=== PATIENT | female | born 1980 | race Caucasian/White ===

== ENCOUNTER 2016-07-20 06:20 | Inpatient (IN) | payer OTHER ==
[2016-07-20] MEDS ORDERED: ELECTROLYTE-148 SOLN 1,000 ML IV ONE (08:15)
[2016-07-20] MEDS ORDERED: CEFAZOLIN (PRE-DOCKED) 50 ML IVPB ONE ×2 (08:20→19:41)
--- NOTE | 2016-07-20 08:28 | HP ---
Past Medical History - Primary Care Physician PCP:: Ilya Olmos - Admission Chief Complaint: 36 yo P2 with h/o prior MYOMECTOMY and section x 2, admitted for repeat section and STERILIZATION. History of Present Illness: Prior h/o uterine surgery: 1. Myomectomy 2011 2. section x 2 History Source: Patient, Medical Record Limitations to Obtaining History: No Limitations - Past Medical History DIAMOND SETTER: No: Alzheimer's, CVA, Dementia, Migraine, Multiple Sclerosis, Peripheral Neuropathy, Parkinson's, Seizure, Syncope, TIA, Vertigo, Other Cardiovascular: No: AFIB, Aneurysm, Aortic Insufficiency, Aortic Stenosis, CAD, CHF, Deep Vein Thrombosis, HTN, Hyperlipdemia, CA, Mitral Insufficiency, Mitral Stenosis, Murmur, Pulmonary Hypertension, Other Pulmonary: No: Asthma, Bronchitis, Cancer, COPD, O2 Dependent, Pneumonia, Previously Intubated, Pulmonary Embolus, Pulmonary Fibrosis, Sleep Apnea, Other Gastrointestinal: No: Ascites, Cancer, Constipation, Crohn's Disease, Diverticulitis, Diverticulosis, Esophageal Varices, Gastritis, GERD, GI Bleed, Hemorrhoids, Hiatal Hernia, Inflamatory Bowel Disease, Irritable Bowel Disease, Pancreatitis, Peptic Ulcer Disease, Ulcerative Colitis, Other Hepatobiliary: No: Cirrhosis, Cholelithiasis, Cholecystitis, Choledocholithiasis , Hepatitis A, Hepatitis B, Hepatitis C, Other Renal/: No: Renal Failure, Renal Inusuff, BPH, Cancer, Hematuria, Hemodialysis , Neurogenic Bladder, Renal Calculi, UTI, Other Reproductive: Yes: Other (Infertility) ...Para: 2 ( x 2) ...Term: 2 Heme/Onc: Yes: Anemia Infectious Disease: No: AIDS, C-Diff, Herpes Zoster, HIV, MRSA, STD's, Tuberculosis, VREF, Other Psych: No: Addictions, Anxiety, Bipolar, Depression, Panic, Psychosis, Schizophrenia, Other Musculoskeletal: No: Bursitis, Chronic low back pain, Hemiparesis, Hemiplegia, Osteoarthritis, Paraplegia, Other Rheumatology: No: Fibromyalgia, Gout, Lupus, Rheumatoid Arthritis, Sarcoidosis, Vasculitis, Other ENT: No: Allergic Rhinitis, Sinusitis, Other Endocrine: No: Waleska's Disease, Pardeep's Disease, Diabetes Insipidus, Diabetes Mellitus, Hyperparathyroidism, Hyperthyroidism, Hypothyroidism, Osteopenia, SIADH, Other Dermatology: No: Basal Cell, Cellulitis, Eczema, Melanoma, Psoriasis, Squamous Cell, Other - Past Surgical History Past Surgical History: Yes: Hx Myomectomy: Yes Hx Transabdominal Cerclage: No - Smoking History Smoking history: Never smoked Have you smoked in the past 12 months: No - Alcohol/Substance Use Hx Alcohol Use: No History of Substance Use: reports: None - Social History Usual Living Arrangement: Yes: With Spouse, With Child ADL: Independent Occupation: [employer] History of Recent Travel: No Home Medications - Allergies Allergies/Adverse Reactions: Allergies Allergy/AdvReac Type Severity Reaction Status Date / Time No Known Allergies Allergy Verified 07/20/16 07:50 - Home Medications Home Medications: Ambulatory Orders Ferrous Sulfate [Feosol] 325 mg PO BID #0 ud 04/16/14 Vitamins (Sjr) - 1 tab PO DAILY #0 tablet 04/16/14 Family Disease History - Family Disease History Family History: Unremarkable Review of Systems - Review of Systems Constitutional: reports: No Symptoms Eyes: reports: No Symptoms HENT: reports: No Symptoms Neck: reports: No Symptoms Cardiovascular: reports: No Symptoms Respiratory: reports: No Symptoms Gastrointestinal: reports: No Symptoms Genitourinary: reports: No Symptoms Breasts: reports: No Symptoms Reported Musculoskeletal: reports: No Symptoms Integumentary: reports: No Symptoms Neurological: reports: No Symptoms Endocrine: reports: No Symptoms Hematology/Lymphatic: reports: No Symptoms Psychiatric: reports: No Symptoms Pain Intensity: 0 Physical Exam - Maternity Constitutional: Yes: Well Nourished, No Distress, Calm Eyes: Yes: WNL, Conjunctiva Clear HENT: Yes: WNL, Atraumatic, Normocephalic Neck: Yes: WNL, Supple, Trachea Midline Cardiovascular: Yes: WNL, Regular Rate and Rhythm Lungs: Clear to auscultation, Normal air movement - Abdominal Exam/OB Fundal Height: 39 Number of Fetuses: Single Presentation: Vertex Contractions: No Heart Rate (range): 135 Heart Rate Location: Midline Category: I Accelerations: Non-Uniform Decelerations: None - Vaginal Exam/OB Vaginal Bleediing: No Speculum Exam: No Dilatation (cm): 0 Amniotic Membrane Status: Intact Station: -3 - Physical Exam Musculoskeletal: Yes: WNL Extremities: Yes: WNL Edema: Yes Edema: LLE: Trace, RLE: Trace Integumentary: Yes: WNL Deep Tendon Reflex Grade: Normal +2 ...Motor Strength: WNL Psychiatric: Yes: WNL, Alert, Oriented Hemorrhage Risk Assessment - Risk Factors Medium Risk Factors: Yes: Prior , uterine surgery,or multiple laparotomies High Risk Factors: Yes: None Risk Score: 1 Risk Level: Medium Risk Imaging - Results Ultrasound: Report Reviewed Assessment/Plan 36 yo P2 with h/o prior MYOMECTOMY and section x 2, admitted for repeat section and STERILIZATION. We discussed the risks, benefits, alternatives of section including but not limited to infection, bleeding, injury to surrounding/underlying tissues, blood transfusion, need for additional surgery to repair any complications, failed sterilization, etc. The pt verbalized her understanding and requested to proceed.
[2016-07-20] MEDS ORDERED: CITRIC ACID/SODIUM CITRATE 30 ML UNIT-DOSE CUP PO ONE (08:30)
[2016-07-20 08:40] VITALS: BMI 34.7
[2016-07-20 09:04] LABS: ALBUMIN 2.4 g/dl (3.4-5.0); ANION GAP 11 (8-16); BILIRUBIN,TOTAL 0.2 mg/dL (0.2-1.0); CALCIUM 8.5 mg/dL (8.5-10.1); CO2 23 mmol/L (21-32); COCKROFT - GAULT 281.2395; CREATININE 0.4 mg/dL (0.55-1.02); GLUCOSE,RANDOM 77 mg/dL (74-106); SGOT/AST 20 U/L (15-37); SGPT/ALT 18 U/L (12-78); TOT PROT 5.5 g/dl (6.4-8.2)
[2016-07-20 09:05] LABS: ALK PHOS 130 U/L (45-117)
[2016-07-20] MEDS ORDERED: ELECTROLYTE-148 SOLN 1,000 ML IV SCH (09:15)
[2016-07-20] MEDS ORDERED: morphine SULFATE/Preservative Free 0.5 MG/ML (1cc Syringe) SPIN ONE (12:59)
[2016-07-20] MEDS ORDERED: ONDANSETRON 4 MG/2 ML VIAL IVPB PRN (12:59)
[2016-07-20] MEDS: OXYTOCIN 20 UNITS in 0.9% NS 1,000 ML IV SCH (13:20)
[2016-07-20] MEDS ORDERED: IBUPROFEN 800 MG/8 ML IJ IVPB PRN (17:11)
--- NOTE | 2016-07-20 17:53 | OP ---
Operative Note - Note: Operative Date: 07/20/16 Pre-Operative Diagnosis: 36yo P2 with at EGA 38wks. prior myomectomy , and sectons x 2. Desired sterilization. Fibroid uterus Operation: 1. Repeat Low Transverse section. 2. Myomectomy. 3. Left salpingetomy, right tubal ligation via modified Pomery method Findings: 1. Multiple dense adhesions b/w uterus, bladder, anterior abdominal wall 2. Multiple large fibroids, including a large anterior submucosal myoma in low uterine segment at incision site 3. Scarred and adherent left Fallopian tube, thickened and adherent right Fallopian tube. Post-Operative Diagnosis: Same as Pre-op Surgeon: Ilya Olmos Transport Pilot: Clive Linton Anesthesiologist/FOOD SERVICE REPRESENTATIVE: Alexa Addison Anesthesia: Spinal Specimens Removed: 1. Placenta. 2. Fibroid. 3. Left Fallopian tube. 4. Frament of right Fallopian tube. Estimated Blood Loss (mls): 1,000 Drains & Tubes with Location: Goff Cath Drains, Volume Out (mls): 100 (clear) Blood Volume Replaced (mls): 0 Fluid Volume Replaced (mls): 1,100 Operative Report Dictated: Yes
[2016-07-20] MEDS ORDERED: METHYLERGONOVINE MALEATE 0.2 MG/1 ML AMP IM PRN (18:08)
[2016-07-20] MEDS ORDERED: BENZOCAINE 20% 57 GM BOTTLE TP PRN (18:08)
[2016-07-20] MEDS ORDERED: SENNOSIDES/DOCUSATE COMBO (SENNA PLUS) TABLET (UD) PO PRN (18:08)
[2016-07-20] MEDS ORDERED: IBUPROFEN 600 MG TABLET (FP) PO PRN (18:08)
[2016-07-20] MEDS ORDERED: oxyCODONE HCL 5 MG TABLET PO PRN (18:08)
[2016-07-20] MEDS ORDERED: BENZOCAINE 28 GM HEMORRHOIDAL OINTMENT TP PRN (18:08)
[2016-07-20] MEDS ORDERED: OXYTOCIN 20 UNITS in 0.9% NS 1,000 ML IV SCH (18:15)
[2016-07-20] MEDS: CEFAZOLIN 1 GM/D5W 50 ML IVPB SCH (19:50)
[2016-07-21] MEDS ORDERED: CEFAZOLIN (PRE-DOCKED) 50 ML IVPB ONE (02:04)
[2016-07-21] MEDS: IBUPROFEN 600 MG TABLET (FP) PO PRN ×5 (02:31→21:17)
[2016-07-21] MEDS: CEFAZOLIN 1 GM/D5W 50 ML IVPB SCH ×2 (02:31→09:04)
[2016-07-21] MEDS: ACETAMINOPHEN 325 MG TABLET (FP) PO PRN ×5 (02:31→21:16)
[2016-07-21 07:59] LABS: BASOPHIL 0.2 % (0-2.0); EOSINOPHIL 0.5 % (0-4.5); MCH 30.8 pg (25.7-33.7); MCHC 33.1 g/dl (32.0-36.0); MEAN CELL VOLUME 93.3 fl (80-96); MEAN PLT VOLUME 8.6 fl (7.5-11.1); NEUTROPHILS 75.8 % (42.8-82.8); PLATELET COUNT 166 K/MM3 (134-434); RDW 15.9 % (11.6-15.6)
--- NOTE | 2016-07-21 08:09 | OP ---
DATE OF OPERATION: 07/20/2016 PREOPERATIVE DIAGNOSIS: A 36-year-old para 2 with at estimated gestational age of 38 weeks, previous history of myomectomy, previous history of 2 sections, desired sterilization, fibroid uterus. POSTOPERATIVE DIAGNOSIS: A 36-year-old para 2 with at estimated gestational age of 38 weeks, previous history of myomectomy, previous history of 2 sections, desired sterilization, fibroid uterus. PROCEDURE: 1. Repeat low transverse section via Pfannenstiel skin incision. 2. Revision of previous 3-skin scars. 3. Uterine myomectomy. 4. Left salpingectomy. 5. Right fallopian tube ligation via modified Berkshire method. SURGEON: Ilya Olmos MD SPECIAL EDUCATION DIRECTOR: Clive Linton MD ANESTHESIOLOGIST: Alexa Addison MD ANESTHESIA: Spinal. COMPLICATIONS: None. ESTIMATED BLOOD LOSS: 1000 mL. URINE OUTPUT: 100 mL of clear urine at the end of the procedure. IV FLUIDS: 1100 mL crystalloid. PATHOLOGY: 1. Placenta. 2. Uterine fibroid. 3. Left fallopian tube. 4. Fragment of the right fallopian tube. FINDINGS: Upon initial examination, a keloid scar was noted in the area of previous 3 Pfannenstiel incisions consistent with the patient's history of a myomectomy followed by 2 sections. The patient requested revision of the scar. Upon section, severe adhesions were noted between the uterus, bladder as well as anterior abdominal wall. The uterus was noted to contain multiple fibroids including a large submucosal myoma located in the lower uterine segment at the site of uterine incision. This fibroid was not visible prior to the uterine incision. There were also multiple other fibroids throughout the uterus. The left fallopian tube was noted to be scarred and densely adherent to the uterus and left ovary. The right fallopian tube was swollen and adherent to the right ovary. A live baby girl was delivered from vertex presentation. No meconium in amniotic fluid. Apgars 10/ 10. The placenta was removed without complications and sent to Pathology. DESCRIPTION OF PROCEDURE: The patient was met preoperatively. Risks, benefits , and alternatives of surgery were discussed in detail. All questions were answered. Increased risks due to adhesive disease and previous myomectomy with sections were discussed. We reviewed the risk of infection, bleeding, scarring, injury to surrounding or underlying organs such as bladder, bowel, etc. were discussed with the patient. The patient verbalized her understanding and requested to proceed with surgery. The patient was brought to the OR with the IV running. She was placed on the surgical table in a sitting position. The spinal anesthesia was achieved without difficulty. The patient was then placed on the surgical table in a supine position with a leftward tilt. She was prepped and draped in the usual sterile fashion. A Goff catheter was inserted and left to drain to gravity. The time-out procedure was conducted as per standard protocol. The surgeons then proceeded with the section. The keloid scar from prior Pfannenstiel incisions was incised. The scar tissue was not sent to Pathology. The incision was then carried down to the level of fascia. The fascia was incised in the midline. The incision was extended bilaterally using Matthews scissors. The fascia was then dissected away from the rectus muscles superiorly and inferiorly. Dense adhesions were noted and were carefully lysed using sharp dissection. The rectus muscle was in the midline. The peritoneum was identified and entered sharply. The peritoneal incision was then extended superiorly and inferiorly. Multiple dense adhesions between the bladder, uterus, and the anterior abdominal wall were carefully lysed using sharp dissection. The bladder was then dissected away from the lower uterine segment using sharp dissection. The bladder was reflected downwards. The uterus was then incised transversely in the lower uterine segment. The lower uterine segment incision was noted to be right next to a large anterior submucosal myoma , which was not noticeable prior to uterine entry. The incision was extended laterally using bandage scissors. The baby was then delivered from vertex presentation without complications. The umbilical cord was clamped and cut. The baby was handed to the awaiting buffer operator. The placenta was then removed manually without complications. The uterus was cleared of all clot and debris. The uterus was exteriorized from the abdominal incision. At that point, it became apparent that the uterus could not be closed due to a large anterior fibroid right next to the incision. At that point, the myomectomy was performed. The anterior fibroid was carefully excised from the anterior uterine wall. Good hemostasis was noted. Once the myomectomy was completed, the uterine incision was closed using a 0 Biosyn suture in 3 layers. The uterine incision was closed with good hemostasis. The uterus was noted to be well contracted. The attention was then turned to the patient's fallopian tubes. The left fallopian tube was scarred and densely adherent to the left ovary. The left fallopian tube was dissected away from the left ovary; however, due to some persistent oozing of blood from the left fallopian tube, the decision was made to proceed with the left salpingectomy. The left fallopian tube was excised with good hemostasis and submitted to Pathology for evaluation. Attention was then turned to the right fallopian tube. The right fallopian tube was noted to be thickened and also adherent to the right ovary; however, the adhesions were thin and not as dense as the left side so the adhesions were lysed. The right fallopian tube was ligated using modified Berkshire method. Good hemostasis was noted. The uterus was then returned to the abdominal cavity. The operative field was irrigated using copious amounts of normal saline. Once the saline was aspirated, good hemostasis was confirmed. The peritoneum was then closed using a 2-0 chromic suture. The rectus muscles were approximated using several interrupted 2-0 chromic sutures. The fascia was closed using a 0 Vicryl suture with good hemostasis and approximation. The subcutaneous adipose tissues were approximated using several interrupted 0 Vicryl sutures. The skin was closed using a 4-0 Vicryl suture with a subcutaneous stitch. Good hemostasis was noted. Sponge, lap, and needle counts were correct. The patient was then transferred to the recovery room in stable condition. Shy [id number] MTDD
[2016-07-21] MEDS: OXYTOCIN 20 UNITS in 0.9% NS 1,000 ML IV SCH ×2 (09:08→17:10)
[2016-07-21] MEDS: ENOXAPARIN NA (PORCINE) 40 MG/0.4 ML DISP.SYRIN SQ SCH (09:10)
[2016-07-21] MEDS: PRENATAL VITAMINS W/ FOLIC ACID TABLET (FP) PO SCH (09:10)
[2016-07-21] MEDS ORDERED: ENOXAPARIN NA (PORCINE) 40 MG/0.4 ML DISP.SYRIN SQ SCH (10:00)
--- NOTE | 2016-07-21 10:10 | PN ---
Progress Note (short form) - Note Progress Note: pod 1 s/p repeat c/s doing well, no excess vaginal bleeding CBC, BMP 07/21/16 06:00 07/20/16 08:15 Last Vital Signs Temp Pulse Resp BP Pulse Ox 97.8 F 77 18 107/64 99 07/21/16 09:40 07/21/16 09:40 07/21/16 09:58 07/21/16 09:40 07/20/16 13:05 abdomen soft, no distension, no cva, uterus firm incision dry, clean no calf tenderness impression pod 1 doing well . afebrile plan ambulate, advance diet. pain management,
[2016-07-21] MEDS: SIMETHICONE 80 MG TAB.CHEW (FP) PO PRN ×3 (10:36→21:16)
--- NOTE | 2016-07-21 17:52 | PN ---
Progress Note (short form) - Note Progress Note: Anesthesiology Post-op POD#1 s/p C/S with bilateral tubal ligation and myomectomy under spinal anesthesia. Pt. is comfortable, walking without difficulty. She denies h/a and is able to urinate without difficulty. VSS.
[2016-07-21] MEDS ORDERED: BISACODYL 10 MG SUPP.RECT RC PRN (18:08)
[2016-07-22] MEDS: SIMETHICONE 80 MG TAB.CHEW (FP) PO PRN ×5 (04:58→22:42)
[2016-07-22] MEDS: ACETAMINOPHEN 325 MG TABLET (FP) PO PRN ×5 (04:58→22:42)
[2016-07-22] MEDS: IBUPROFEN 600 MG TABLET (FP) PO PRN ×5 (04:59→22:43)
--- NOTE | 2016-07-22 07:04 | PN ---
Post Progress Note - Subjective Subjective: 36yo P3 now POD # 2 voiding, ambulating, Passing flatus, tolerating regular diet Post Day: 2 Type of Delivery: Repeat C/S Vital Signs: Vital Signs Temperature 97.6 F 07/21/16 20:52 Pulse Rate 99 H 07/21/16 20:52 Respiratory Rate 18 07/21/16 20:52 Blood Pressure 120/67 07/21/16 20:52 O2 Sat by Pulse Oximetry (%) 99 07/20/16 13:05 Breast Exam: Yes: Soft Uterus: Yes: Fundus Firm, Non-tender Incision: Yes: Sutures intact. No: Dressing dry and intact Abdomen/GI: Yes: Abdomen soft, Passing flatus, Tolerating PO Lochia: Yes: Rubra Lochia, amount: Small Extremities: Yes: Calves non-tender Activity: Ambulating - Labs Labs: CBC WBC 11.0 K/mm3 (4.0-10.0) H D 07/21/16 06:00 RBC 3.22 M/mm3 (3.60-5.2) L 07/21/16 06:00 Hgb 9.9 GM/dL (10.7-15.3) L 07/21/16 06:00 Hct 30.0 % (32.4-45.2) L 07/21/16 06:00 MCV 93.3 fl (80-96) 07/21/16 06:00 MCHC 33.1 g/dl (32.0-36.0) 07/21/16 06:00 RDW 15.9 % (11.6-15.6) H 07/21/16 06:00 Plt Count 166 K/MM3 (134-434) 07/21/16 06:00 MPV 8.6 fl (7.5-11.1) 07/21/16 06:00 Neutrophils % 75.8 % (42.8-82.8) 07/21/16 06:00 Lymphocytes % 16.5 % (8-40) D 07/21/16 06:00 Monocytes % 7.0 % (3.8-10.2) 07/21/16 06:00 Eosinophils % 0.5 % (0-4.5) 07/21/16 06:00 Basophils % 0.2 % (0-2.0) 07/21/16 06:00 Assessment/Plan 36 yo P3 now s/p repeat c/s, myomectomy, BTL VSS, Afibrile h/h stable cont routine care
[2016-07-22] MEDS ORDERED: DIPHTH,PERTUSS(ACELL),TET 0.5 ML DISP.SYRIN IM ONE (10:00)
[2016-07-22] MEDS: PRENATAL VITAMINS W/ FOLIC ACID TABLET (FP) PO SCH (10:13)
[2016-07-22] MEDS: ENOXAPARIN NA (PORCINE) 40 MG/0.4 ML DISP.SYRIN SQ SCH (10:14)
[2016-07-22] MEDS ORDERED: CEFAZOLIN (PRE-DOCKED) 50 ML IVPB ONE (17:01)
[2016-07-23] MEDS: ACETAMINOPHEN 325 MG TABLET (FP) PO PRN ×2 (02:51→13:39)
[2016-07-23] MEDS: SIMETHICONE 80 MG TAB.CHEW (FP) PO PRN ×2 (02:51→13:41)
[2016-07-23] MEDS: IBUPROFEN 600 MG TABLET (FP) PO PRN ×2 (02:53→13:40)
--- NOTE | 2016-07-23 07:43 | PN ---
Post Progress Note - Subjective Subjective: 36 yo P3 now s/p repeat c/s and BTL no complains, no NIEVES, voids, ambulates, +BM, tolerating PO Post Day: 3 Type of Delivery: Repeat C/S Vital Signs: Vital Signs Temperature 97.7 F 07/22/16 20:30 Pulse Rate 99 H 07/22/16 20:30 Respiratory Rate 18 07/22/16 20:30 Blood Pressure 116/65 07/22/16 20:30 O2 Sat by Pulse Oximetry (%) 99 07/20/16 13:05 Breast Exam: Yes: Soft Uterus: Yes: Fundus Firm Incision: Yes: Sutures intact Abdomen/GI: Yes: Abdomen soft, Passing flatus, Tolerating PO Lochia: Yes: Rubra Lochia, amount: Small Extremities: Yes: Calves non-tender Activity: Ambulating - Labs Labs: CBC WBC 11.0 K/mm3 (4.0-10.0) H D 07/21/16 06:00 RBC 3.22 M/mm3 (3.60-5.2) L 07/21/16 06:00 Hgb 9.9 GM/dL (10.7-15.3) L 07/21/16 06:00 Hct 30.0 % (32.4-45.2) L 07/21/16 06:00 MCV 93.3 fl (80-96) 07/21/16 06:00 MCHC 33.1 g/dl (32.0-36.0) 07/21/16 06:00 RDW 15.9 % (11.6-15.6) H 07/21/16 06:00 Plt Count 166 K/MM3 (134-434) 07/21/16 06:00 MPV 8.6 fl (7.5-11.1) 07/21/16 06:00 Neutrophils % 75.8 % (42.8-82.8) 07/21/16 06:00 Lymphocytes % 16.5 % (8-40) D 07/21/16 06:00 Monocytes % 7.0 % (3.8-10.2) 07/21/16 06:00 Eosinophils % 0.5 % (0-4.5) 07/21/16 06:00 Basophils % 0.2 % (0-2.0) 07/21/16 06:00 Assessment/Plan 36 yo P3 now s/p repeat c/s, myomectomy, BTL VSS, Afibrile h/h stable d/c home today O + blood type baby girl NPV x 6 wks RTO in 1 week and 6 weeks
[2016-07-23 08:26] VITALS: BP 138/81; PULSE 82; TEMP 97.8
--- NOTE | 2016-07-23 08:36 | DS ---
Physical Exam-SAMMYING MACHINE OPERATOR Vital Signs: Vital Signs Temperature 97.8 F 07/23/16 08:25 Pulse Rate 82 07/23/16 08:25 Respiratory Rate 20 07/23/16 08:25 Blood Pressure 138/81 07/23/16 08:25 O2 Sat by Pulse Oximetry (%) 99 07/20/16 13:05 Constitutional: Yes: Well Nourished Eyes: Yes: WNL HENT: Yes: WNL Neck: Yes: WNL Cardiovascular: Yes: WNL Respiratory: Yes: WNL Gastrointestinal: Yes: WNL Renal/: Yes: WNL Pelvis: Yes: WNL External Genitalia: Yes: Normal Uterus: Yes: Normal, Firm Breast(s): Yes: WNL Edema: LUE: Trace, LLE: Trace Integumentary: Yes: WNL Wound/Incision: Yes: Clean/Dry, Sutures Intact Neurological: Yes: WNL ...Motor Strength: WNL Psychiatric: Yes: WNL Labs: CBC, BMP 07/21/16 06:00 07/20/16 08:15 Delivery - Delivery Section: Repeat (Myomectomy), Low Flap Transverse Type of Anesthesia: Spinal Episiotomy/Laceration: None EBL (cc): 1,000 Delivery, Single - Stages of Labor Date of Delivery: 07/20/16 Time of Delivery: 10:25 Time Placenta Delivered: 10:26 - Condition of Film Replacement Orderer/Technical Report Writer Present: Yes Name: Arlette Omer Weight: 6 lb 7 oz Total Hours ROM (Hrs/Mins): 0/2 - 1 Minute Total Score: 10 5 Minutes Total Score: 10 - Feeding Plan Initial Plan: Exclusive throughout hospitalization Remarks - Remarks Remarks: 36 yo P3 s/p Repeat c/s, BTL, Myomectomy good Post op recovery will follow at 1 and 6 weeks PP Discharge Summary Reason For Visit: [id number] Condition: Good - Instructions Diet, Activity, Other Instructions: Physical activity Resume your normal everyday activity as tolerated no heavy lifting or exercise until seen by your surgeon. You may walk unlimited nolberto of and climb stairs. You may resume driving the car when you feel safe and comfortable behind the wheel. No sexual activity as instructed. Wound care If you have a bandage, leave it on, and keep dry for 48-72 hours. After that time discard the outer bandage. If they are tapes on the skin under the out of bandage leave them in place. They will peel off in the next 7 to 10 days. Do Not Peel them off. You may shower the day after surgery. If there are tapes present on the skin, you may shower over them. Diet There are no dietary restrictions. Eat healthy, high-fiber foods. Drink 6 to 8 glasses of liquid each day. This will assist in keeping your bowels are regular. Pain management You may take Tylenol or acetaminophen or Ibuprofen (for example, Motrin, Advil etc.) from my pain prescription medication is ordered should be taken as prescribed for moderate to severe pain. Call MD for any of the following: Severe pain not relieved by medication Fever of 101 or higher Excessive bleeding or drainage on dressing Inability to urinate Referrals: Ilya Olmos MD [Staff Physician] - Disposition: HOME - Home Medications Comprehensive Discharge Medication List: Ambulatory Orders Ferrous Sulfate [Feosol] 325 mg PO BID #0 ud 04/16/14 Vitamins (Sjr) - 1 tab PO DAILY #0 tablet 04/16/14 Oxycodone HCl/Acetaminophen [Percocet 5-325 mg Tablet] 2 tab PO Q4H #20 tablet MDD 8 07/23/16
[2016-07-23 08:50] LABS: BASOPHIL 0.4 % (0-2.0); EOSINOPHIL 1.8 % (0-4.5); MCH 30.5 pg (25.7-33.7); MCHC 32.5 g/dl (32.0-36.0); MEAN CELL VOLUME 93.7 fl (80-96); MEAN PLT VOLUME 8.6 fl (7.5-11.1); NEUTROPHILS 67.2 % (42.8-82.8); PLATELET COUNT 179 K/MM3 (134-434); RDW 15.9 % (11.6-15.6); WHITE BLOOD COUNT 7.4 K/mm3 (4.0-10.0)
[2016-07-23] MEDS: PRENATAL VITAMINS W/ FOLIC ACID TABLET (FP) PO SCH (09:54)
[2016-07-23] MEDS: ENOXAPARIN NA (PORCINE) 40 MG/0.4 ML DISP.SYRIN SQ SCH (09:54)
--- NOTE | 2016-07-26 13:14 | PATH ---
Surgical Pathology Report Patient Name: URIEL DYER [facility]. Rec. 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 Specimen(s) Received A: PLACENTA B: FIBROID C: ADHESION D: PORTION RIGHT FALLOPIAN TUBE E: PORTION LEFT FALLOPIAN TUBE Clinical History 38 weeks, c/section x2, h/o myomctomy for repeat c/section and BTL Removal of fibroid Final Diagnosis A. PLACENTA, DELIVERY: FOCALLY DISRUPTED THIRD TRIMESTER PLACENTA WITH MODERATE TO MARKED INCREASE IN PREVILLOUS, PERIVILLOUS, AND PRECHORIONIC FIBRIN DEPOSITION, THREE VESSEL UMBILICAL CORD, AND PLACENTAL MEMBRANES WITH LAMELLAR NECROSIS. B. FIBROID, REMOVAL: LEIOMYOMA (5.0 CM). C. ADHESION, REMOVAL: BENIGN FIBROCONNECTIVE TISSUE WITH VASCULAR CONGESTION AND HEMORRHAGE CONSISTENT WITH ADHESION AND BENIGN SMOOTH MUSCLE. D. PORTION OF FALLOPIAN TUBE, RIGHT, LIGATION: SEGMENTS OF FALLOPIAN TUBE WITH COMPLETE CROSS SECTION. E. PORTION OF FALLOPIAN TUBE, LEFT, LIGATION: FIMBRIATED PORTION OF FALLOPIAN TUBE WITH COMPLETE CROSS SECTION. Electronically Signed Luis Enrique Fong M.D. Gross Description A. The specimen is received fresh, labeled "placenta" and is a 545 gram, 16.0 x 14.5 x 3.2 cm placenta with attached membranes and umbilical cord. The attached membranes are llanos, thickened and insert marginally. The umbilical cord measures 43 cm in length and averages 1.1 cm in diameter. The cord inserts eccentrically, 1.5 cm to the nearest margin. No true knots or strictures are identified. Cut surface of the umbilical cord reveals 3 vessels. The surface is james-blue with fibrin deposition and appropriate caliber vessels. The maternal surface is red-brown with focal defects. Sectioning reveals red-brown, spongy parenchyma. No focal lesions are identified. Clinical Nursing Instructor sections are submitted in three cassettes as follows: 1- membrane rolls and umbilical cord; 2-3- full thickness sections of placenta. B. Received in formalin labeled "fibroid" is a 77 g, 5.5 x 4.6 x 4.4 cm llanos, firm nodule, consistent with a fibroid. Sectioning reveals llanos, firm to rubbery parenchyma with whorled architecture. No areas of hemorrhage or necrosis are identified. Clinical Nursing Instructor sections are submitted in 3 cassettes. C. Received in formalin labeled "adhesion" is a 2.5 x 1.3 x 1.3 cm llanos-pantoja, focally hemorrhagic portion of soft tissue. Clinical Nursing Instructor sections are submitted in one cassette. D. Received in formalin labeled "portion of right fallopian tube" is a 1.7 cm in length portion of fallopian tube. No fimbria are present. The outer surface is llanos-pantoja and smooth. Sectioning reveals an unremarkable lumen. Clinical Nursing Instructor sections are submitted in one cassette. E. Received in formalin labeled "portion of left fallopian tube" is a 2 cm in length fimbriated portion of fallopian tube. The outer surface is llanos-pantoja and smooth. Sectioning reveals an unremarkable lumen. Clinical Nursing Instructor sections are submitted in 2 cassettes as follows: 1-fimbria; 2-cross sections of fallopian tube. 07/25/2016 [facility]07/25/2016
== END 2016-07-23 19:15 | disposition home or self-care (01) | DRG 766 ==
LOC: JLDR 06:20 → J3W 13:28
PROVIDERS: ADMIT Obstetrics & Gynecology; ATTEND Obstetrics & Gynecology
PROC: 10D00Z1 Extraction of Products of Conception, Low, Open Approach (ICD-10-PCS; principal; 2016-07-20)
PROC: 0UL70ZZ Occlusion of Bilateral Fallopian Tubes, Open Approach (ICD-10-PCS; 2016-07-20)
PROC: 0UB90ZZ Excision of Uterus, Open Approach (ICD-10-PCS; 2016-07-20)
DX: O34.211 Maternal care for low transverse scar from previous cesarean delivery (principal); Z3A.38 38 weeks gestation of pregnancy; O09.523 Supervision of elderly multigravida, third trimester; O34.13 Maternal care for benign tumor of corpus uteri, third trimester; D25.0 Submucous leiomyoma of uterus; Z30.2 Encounter for sterilization; Z37.0 Single live birth
CPT/HCPCS: 36415; 80053; 85025; 86593; 88302-TC; 88304-TC; 88305-TC; 88307-TC; 90715

== ENCOUNTER 2020-06-21 04:21 | Day surgery (SDC) | payer OTHER ==
[2020-06-16 15:19] VITALS: BMI 29.2
[2020-06-21] MEDS ORDERED: IBUPROFEN 800 MG/8 ML IJ IVPB PRN (09:04)
[2020-06-21] MEDS ORDERED: oxyCODONE HCL 5 MG TABLET PO PRN (09:04)
[2020-06-21] MEDS ORDERED: ONDANSETRON 4 MG/2 ML VIAL IVPUSH PRN (09:04)
[2020-06-21] MEDS ORDERED: IBUPROFEN 600 MG TABLET (FP) PO PRN (09:04)
[2020-06-21] MEDS ORDERED: ELECTROLYTE-148 SOLN 1,000 ML IV SCH (09:15)
[2020-06-21] MEDS ORDERED: MIDAZOLAM HCL 2 MG/2 ML SINGLE DOSE VIAL ONE (09:40)
[2020-06-21] MEDS ORDERED: PROPOFOL 20 ML ONE ×3 (09:41)
[2020-06-21 13:24] VITALS: BP 118/73; PULSE 72; TEMP 97.6
== END 2020-06-21 12:55 | disposition home or self-care (01) ==
LOC: JASU-SURG 04:21
PROVIDERS: ATTEND Obstetrics & Gynecology
PROC: 0UJD8ZZ Inspection of Uterus and Cervix, Via Natural or Artificial Opening Endoscopic (ICD-10-PCS; 2020-06-21)
PROC: 0UB98ZZ Excision of Uterus, Via Natural or Artificial Opening Endoscopic (ICD-10-PCS; principal; 2020-06-21 09:00)
PROC: 0UDB7ZX Extraction of Endometrium, Via Natural or Artificial Opening, Diagnostic (ICD-10-PCS; 2020-06-21 09:00)
DX: D25.0 Submucous leiomyoma of uterus (principal); D50.9 Iron deficiency anemia, unspecified
CPT/HCPCS: 36415; 84703; 86850; 86900; 86901; 87086; 94760

== ENCOUNTER 2022-09-04 04:13 | Day surgery (SDC) | payer OTHER ==
[2022-08-29 16:27] VITALS: BMI 29.2
[2022-09-04] MEDS ORDERED: ONDANSETRON 4 MG/2 ML VIAL IVPUSH PRN ×2 (09:38→13:24)
[2022-09-04] MEDS ORDERED: IBUPROFEN 600 MG TABLET (FP) PO PRN (09:38)
[2022-09-04] MEDS ORDERED: oxyCODONE HCL 5 MG TABLET PO PRN (09:38)
[2022-09-04] MEDS ORDERED: IBUPROFEN 800 MG/8 ML IJ IVPB PRN (09:38)
[2022-09-04] MEDS ORDERED: ELECTROLYTE-148 SOLN 1,000 ML IV SCH (09:45)
[2022-09-04] MEDS ORDERED: PROMETHAZINE HCL 25 MG/1 ML VIAL IVPB PRN (13:24)
[2022-09-04] MEDS ORDERED: LACTATED RINGERS SOLUTION 1,000 ML IV SCH (13:30)
[2022-09-04] MEDS ORDERED: MIDAZOLAM HCL 2 MG/2 ML SINGLE DOSE VIAL ONE (13:52)
[2022-09-04] MEDS ORDERED: PROPOFOL 20 ML ONE (14:01)
[2022-09-04] MEDS ORDERED: ceFAZolin SODIUM 1 GM VIAL IVPB ONE (14:15)
[2022-09-04 16:28] VITALS: RESP 18
[2022-09-04 19:44] VITALS: BP 150/88; PULSE 60; TEMP 98.2
[2022-09-04 20:43] LABS: PH,URINE 7.5 (5.0-8.0); URINE APPEARANCE CLOUDY; URINE BILIRUBIN NEGATIVE (NEGATIVE); URINE COLOR YELLOW; URINE GLUCOSE (UA) NEGATIVE (NEGATIVE); URINE KETONE NEGATIVE (NEGATIVE); URINE LEUK ESTERASE NEGATIVE (NEGATIVE); URINE NITRITE NEGATIVE (NEGATIVE); URINE PROTEIN NEGATIVE (NEGATIVE); URINE UROBILINOGEN 0.2 mg/dL (0.2-1.0)
== END 2022-09-04 18:00 | disposition home or self-care (01) ==
LOC: JASU-SURG 04:13
PROVIDERS: ATTEND Obstetrics & Gynecology
PROC: 0U5B8ZZ Destruction of Endometrium, Via Natural or Artificial Opening Endoscopic (ICD-10-PCS; principal; 2022-09-04 12:00)
DX: N92.0 Excessive and frequent menstruation with regular cycle (principal); N84.1 Polyp of cervix uteri
CPT/HCPCS: 81003; 81025; 87086; 88305-TC